=== PATIENT | male | born 1960 | race African-American/Black ===

== ENCOUNTER → 2020-01-13 10:31 | Outpatient (CLI) | payer MEDICARE, MEDICAID, SELFPAY ==
[2020-01-14 10:47] LABS: COVID19 Sendout Not Detected (Not Detect)
== END ==
PROVIDERS: Visit Provider Physician Assistant
DX: Z11.59 Encounter for screening for other viral diseases (principal)
CPT/HCPCS: 87635

== ENCOUNTER 2020-01-16 06:17 | Day surgery (SDC) | payer MEDICARE, MEDICAID, SELFPAY ==
[2020-01-09 12:49] VITALS: BMI 31.4
[2020-01-16] VITALS (21 sets, daily range): BP systolic 134–197; BP diastolic 69–96; PULSE 65–190; RESP 10–82; TEMP 36.1–36.9; O2SAT 15–99
--- NOTE | 2020-01-16 | DI.RAD.S_ITS ---
PROCEDURE: XR CERVICAL SPINE 2V OR 3V INDICATIONS: C3-4, C4-5 ACDF TECHNIQUE: 2 intraoperative fluoroscopic view(s) of the cervical spine were acquired. COMPARISON: None. FINDINGS: Intraoperative fluoroscopic images of the cervical spine shows anterior fusion at C3 through C5 levels with intervertebral spacer placement at C3-4 and C4-5 levels. Mild straightening of normal cervical lordosis is seen. IMPRESSION: Fluoro guidance was provided intraoperatively for anterior fusion at C3 through C5 levels. Dictated by: Hussein Wu M.D. on 01/16/2020 at 10:49 Approved by: Hussein Wu M.D. on 01/16/2020 at 10:50
[2020-01-16] MEDS: LACTATED RINGERS 1,000 ML 42 ML IV (06:58)
--- NOTE | 2020-01-16 07:36 | PM.PREOP ---
Pre-operative Note COVID-19 COVID-19 status: Negative Result date/Date tested (Pos, Neg/Pending): 01/14/20 Interval Note History & Physical reviewed/Exam performed by Physician: Yes Changes to H&P: No
[2020-01-16] MEDS: CEFAZOLIN 2 GM/100 ML FROZ.PIGGY IV ×3 (07:39→23:47)
--- NOTE | 2020-01-16 08:23 | SUR.OPER ---
Supine, head on gel donut. Arms padded with gel pads, tucked at sides, towel roll under shoulders. Safety belt at thigh. Legs uncrossed.
[2020-01-16] MEDS: BUPIVACAINE 0.25% W/ EPI 30 ML VIAL INJ (08:29)
[2020-01-16] MEDS: LACTATED RINGERS 1,000 ML 120 ML IV (10:08)
--- NOTE | 2020-01-16 10:14 | SUR.OPER ---
dentures in labeled cup to pacu with patient
--- NOTE | 2020-01-16 10:19 | P.OP_ITS ---
Operative Date/Time/Diagnoses Date of procedure: 01/16/20 Time of procedure: 08:20 Pre-op diagnosis: 1. C3-4, C4-5 spinal stenosis 2. C3-4, C4-5 spondylosis with radiculopathy Post-op diagnosis: same Procedure & Clinicians Procedure: 1. C3-4, C4-5 anterior cervical diskectomy and fusion 2. C3-4, C4-5 anterior interbody cage placement 3. C3-4, C4-5 anterior instrumentation with plate and screw placement in C3-4 and C5 vertebrae 4. Utilization of microsurgical technique and operating microscope Same procedure as scheduled: Yes Indications: Patient has been having chronic neck pain and worsening cervical radiculopathy. Patient failed multiple conservative management with worsening pain weakness and numbness in her upper extremity. Patient has been having difficulty performing activity of daily living. After discussing risks benefits of treatment options, patient elected proceed with surgery. Surgeon: Herlinda Bauman Harbormaster: Sara Quinones Click Yes if Unassisted: No Anesthesia Type: General Operative Notes Closure Type: primary Specimen(s): none sent Prosthetic devices, grafts, tissues, transplants, or devices: Globus extend plate, PEEK cages Estimated Blood Loss (mL): 10 Blood products transfused: none Procedure in detail: Patient was seen in the preoperative area. Risks and benefits of the surgery was discussed with the patient. Operative consent was obtained and placed in the chart. Patient was then taken to the operative room. Prophylactic antibiotic was given less than 0.5 hr prior to skin incision. General anesthesia was administered. Patient was placed into a supine position on her radiolucent table. Bilateral shoulders were taped down to allow proper C- arm imaging. Anterior cervical area was prepped and draped in a sterile fashion. Time-out was performed at this time. Using lateral C-arm imaging, the level between C3 and C5 was identified and marked on patient's neck. A oblique incision from midline towards medial border of sternocleidomastoid muscle was made. The platysma muscle was incised in line with skin incision. Metzenbaum scissor was used to develop the plane between the medial border of sternocleidomastoid d and the strap muscles medially. The carotid sheath and its contents were identified and protected behind the hand- held retractor during the entire case. The plane between the carotid sheath and strap muscles was developed with Metzenbaum scissors. Dissection was made down to the level of the anterior cervical fascia. Longus colli muscle was incised on the anterior aspect of vertebral bodies bilaterally from C3-C5. Spinal needle was placed into the C3-4 disc space and confirmed with lateral C-arm imaging. Using microsurgical technique and operative microscope, anterior cervical diskectomy was performed at C3-4 and C4-5 level. This was done by removing the disc material, removing the anterior and posterior osteophytes posterior longitudinal ligaments along with performing bilateral foraminotomies at both levels. Patient was found to have severe central and foraminal stenosis at both levels. Patient's stenosis was fully decompressed after decompression was completed. After the diskectomy was completed, 2 anterior interbody cages were obtained. The cages were packed with DBMl bone grafting material. One cage each along with the bone grafting material was then packed into the interbody spaces from C3-4, C4-5 with one cage into each interbody level. After the cages were placed, the anterior cervical plate was stabilized to the C3-5 vertebrae using 2 screws at each each level. Total 6 screws were placed. After confirming placement of the hardware with AP and lateral C-arm imaging, the screws were locked into the plate using the locking mechanism and torque limiting screwdriver. After the hardware was placed and confirmed with AP and lateral C-arm imaging, the wound was irrigated with sterile normal saline. The platysma muscle and the subcutaneous tissue was closed with 2-0 Vicryl. The skin was closed with 4-0 Monocryl and Steri-Strips. Patient tolerated the procedure well. Patient was transferred recovery room in stable condition. There were no complications. Complications: none Post-operative Condition: stable Disposition: PACU Plan for aftercare: Admit to inpatient hospital
[2020-01-16] MEDS: INSULIN ASPART 100 UNIT/ML 10ML VIAL SUBCUT (10:58)
--- NOTE | 2020-01-16 11:04 | SUR.PHASEI ---
1037 to PACU sleeping, oral airway and mask in place. Woke spontaneously at 1042; oral airway dc'd. Very drowsy, minimally opens eyes to request; does not respond to questions regarding pain. 1-3 extra people at bedside as patient began moving around, reassurance given. Pt turned self to position of comfort. 1050 Pt didn't not respond to questions about neck pain, just repeatedly stated I;ve gotta pee. Dr. Bauman consulted by Contreras Balderrama, RN, stated that aguirre may be remove (done by Contreras Balderrama, QING).
[2020-01-16] MEDS: fentaNYL 100 MCG/2 ML INJ IV ×2 (11:15→11:22)
[2020-01-16] MEDS: ACETAMINOPHEN 325 MG TABLET 975 MG PO (11:29)
[2020-01-16] MEDS: OXYCODONE IR 5 MG TABLET PO ×5 (11:30→22:07)
--- NOTE | 2020-01-16 11:32 | SUR.PHASEI ---
1130 Medicated PO after applesauce. Dozing intermittently after 2nd dose of fentanyl. Pt rates pain at 10/10, Facc score used for more accurate assessment of patient status. No crying. mostly calm, dozing intermittently. Skin warm and dry, resp unlabored. Hand-off report to Contreras Ballard RN.
[2020-01-16] MEDS: SODIUM CHLORIDE 0.9% 1,000 ML 100 ML IV ×2 (12:33→23:19)
--- NOTE | 2020-01-16 12:41 | PC.NURSE ---
Day shift note: Received patient from PACU on RA, sat 96%, awake, and alert. SCDs and IVF initiated upon arrival. VSS. SOft cervical collar in place. Scan drainage to edge of dressing to anterior neck, secured with 4 x 4 gauze and tegaderm. Oriented to room, environment, and plan of care. HIgh fall risk precautions maintained, call light within reach.
--- NOTE | 2020-01-16 16:07 | PT-IP ANOTE ---
Received PT orders and reviewed chart. Attempted to contact pt twice this PM with pt deeply asleep and unable to answer questions or participate safely. Will follow up for PT eval on 01/17/20.
[2020-01-16] MEDS: DOCUSATE 100 MG CAPSULE PO (21:23)
[2020-01-16] MEDS: MELOXICAM 7.5 MG TABLET 15 MG PO (21:23)
[2020-01-16] MEDS: GABAPENTIN 300 MG CAPSULE PO (21:23)
[2020-01-16] MEDS: lisinopriL 5 MG TABLET PO (21:23)
[2020-01-16] MEDS: ATORVASTATIN 20 MG TABLET 40 MG PO (21:23)
[2020-01-16] MEDS: SENNOSIDES 8.6 MG TABLET 17.2 MG PO (21:24)
[2020-01-16] MEDS: INSULIN GLARGINE 100 UNIT/ML 10ML VIAL 66 UNIT SUBCUT (21:34)
[2020-01-17] VITALS: BP 150/75; PULSE 79; RESP 18; TEMP 36.9; O2SAT 98
[2020-01-17] MEDS: OXYCODONE IR 5 MG TABLET PO ×4 (01:06→10:12)
[2020-01-17 04:00] VITALS: BP 152/88; PULSE 69; RESP 18; TEMP 36.5; O2SAT 95
--- NOTE | 2020-01-17 07:37 | P.PN_ITS ---
Subjective Subjective Date Patient Seen: 01/17/20 Time Patient Seen: 07:37 Interval history: POD #1 s/p C3-[address] Bauman. Patient has no complaints of pain or muscle spasms. His pain is well controlled with Oxycodone. He has been eating with no difficulty swallowing. Does note some mild hoarseness. Continues to have left arm numbness and weakness which is baseline prior to surgery. No difficulty with urination. Wren was removed immediately following surgery. Exam Vital Signs (past 8 hours): - 01/17/20 00:00 01/17/20 04:00 Temperature 98.5 F 97.7 F Pulse Rate 79 69 Respiratory Rate 18 18 Blood Pressure 150/75 H 152/88 H Pulse Oximetry 98 95 Oxygen Delivery Method Room Air Oxygen Flow Rate 0 Narrative Exam Narrative: Patient sitting up in bed in NAD. He is alert and oriented X3. Calves are soft, compressible, and nontender bilaterally. Dressing on anterior neck is CDI. Sensation intact to light touch except for left forearm. Financial Operations Consultant strength weak at left hand. Radial pulses symmetrical. Assessment & Plan Post-op Postoperative Procedures: Procedures Operation Date: 01/16/20 07:45 Actual Procedures Side Surgeon p C3-4,C4-5 ACDF with anterior instrumentation Not Applicable Herlinda Bauman MD Patient will mobilize with PT today. Soft collar for comfort. No excessive bending, lifting, or twisting. Continue pain control with Oxycodone. Advised if he develops muscle spasms to take Vistaril. If patient mobilizes safely he can DC home today.
[2020-01-17] MEDS: DOCUSATE 100 MG CAPSULE PO (08:06)
[2020-01-17] MEDS: INSULIN GLARGINE 100 UNIT/ML 10ML VIAL 66 UNIT SUBCUT (08:10)
[2020-01-17 08:35] VITALS: BP 147/91; PULSE 66; RESP 18; TEMP 36.6; O2SAT 96
--- NOTE | 2020-01-17 09:03 | OT.IP.EVAL ---
Current Diagnoses Other spondylosis with radiculopathy, cervical region (01/16/20) Spinal stenosis, cervical region (01/16/20) Surgery Performed Operation Date: 01/16/20 07:45 Actual Procedures p C3-4,C4-5 ACDF with anterior instrumentation(Not Applicable) - Herlinda Bauman MD Past Medical History (Last Updated 01/11/20 @ 10:57 by Connie Colon RN) Asthma (Acute) Diabetes (Acute) HLD (hyperlipidemia) (Acute) HTN (hypertension) (Acute) Kidney stones (Acute) Nerve damage (Acute) Outbursts of anger (Acute) Speech impediment (Acute) TBI (traumatic brain injury) (Acute ~2001) Surgical History (Last Updated 01/09/20 @ 13:20 by Connie Colon RN) Hx of arthroscopy of left knee (Acute 04/2016) Hx of hernia repair (Acute 1981) Hx of knee surgery (Acute 1982) Occupational Therapy Inpatient Evaluation/Re-Eval M1 PT/OT-IP Prior Functional Status Start: 01/17/20 10:09 Freq: NEEDED Status: Active Protocol: Document 01/17/20 10:10 [facility] (Rec: 01/17/20 10:29 [facility] [id number]) Medical Review Prior Functional Status Medical History Reviewed Yes Communication Independent. Mobility and Gait Pt did not use any devices. Activities of Daily Living and IADL's Pt states was able to do all ADL needs, needing assist for meds and drives. Social History Household Members spouse Living Arrangements House Number of Floors (Floors) One Floor Number of Stairs To Enter/Railing? 5 steps with left hand rail going up. Home Environment Standard Height Toilet,Tub/ Shower M2 OT-IP Current Condition Start: 01/17/20 10:09 Freq: Status: Active Protocol: Document 01/17/20 10:10 [facility] (Rec: 01/17/20 10:29 [facility] [id number]) Occupational Therapy Current Condition Current Condition Evaluation Date 01/17/20 Treatment Diagnosis Spinal stenosis s/p C3-4, C4-5 ACDF with ant instr. Diagnosis Onset Date 01/16/20 Post Operative Precautions Cervical Spine Precautions Soft Collar for Comfort,No Heavy Lifting,Log Roll M3 OT- IP Subjective and Pain Start: 01/17/20 10:09 Freq: Status: Active Protocol: Document 01/17/20 10:10 [facility] (Rec: 01/17/20 10:29 [facility] [id number]) OT- Subjective Occupational Therapy Visit Type Type Initial Evaluation Visit Start Time 08:30 Visit Stop Time 09:03 Total Visit Minutes 33 Occupational Therapy Visit Comments Patient Comments Pt's present for OT eval. Patient/Caregiver Goals TO go home. OT Pain Assessment Pain When Pain Assessed At Rest Pain Present Pain Present Pain Reported Location Neck Intensity 6 Scale Used Numeric (0 - 10) M4 OT- IP ADL's Start: 01/17/20 10:09 Freq: Status: Active Protocol: Document 01/17/20 10:10 [facility] (Rec: 01/17/20 10:29 [facility] [id number]) OT DNP-[id number] Comments OT Self-Feeding Comments NOt at meal time. Able to go over with pt and regarding strategies after ACDF, eating softer food, chewing food thoroughly, sitting upright , colder food can be helpful and also use of a straw. OT ADL-Grooming General Evaluation Grooming Ability Independent Areas Needing Assistance Retrieving/Set-up of Grooming Items Comments OT Grooming Comments VC for spitting into a cup. OT ADL-Oral Care General Eval Oral Care Ability Independent OT ADL-Dressing General Eval Upper Body Dressing Ability Independent Lower Body Dressing Ability Minimal Assistance Areas Needing Assistance Shoes Comments OT Dressing Comments Pt able to ronal/doff soft collar with LEONOR to help with tightness. Pt needing assist to tie his shoes. Pt able to comfortable get his shorts on without discomfort from his neck. Otherwise has good understanding to assist pt as needed. OT ADL-Toileting General Evaluation Toileting Ability Standby Assistance Comments OT Toileting Comments Practiced toileting and determined best to stand and wipe to best follow cervical precautions. OT ADL-Bathing Comments OT Bathing Comments Pt refused. Pt's state marleni be sure to assist as needed. M5 OT- IP IADL's Start: 01/17/20 10:09 Freq: Status: Active Protocol: Document 01/17/20 10:10 [facility] (Rec: 01/17/20 10:29 [facility] [id number]) OT-Instrumental Activities of Daily Living Home Safety Awareness Home Safety Comments Pt a bit impulsive and needing safety reminders at this time manly to slow down and think things through. Medication Management Medication Management Caregiver Administers Money Management Money Management Caregiver Provides Assistance Meal Preparation Meal Preparation Caregiver Provides Assist Nursing Assoc Nursing Assoc Caregiver Provides Assist Driving Driving Caregiver Provides Assist M6 OT- IP Functional Cognition Start: 01/17/20 10:09 Freq: Status: Active Protocol: Document 01/17/20 10:10 [facility] (Rec: 01/17/20 10:29 [facility] [id number]) Cognitive Factors Limiting Selfcare Function Cognitive Ability Level of Alertness Alert Patient Orientation Name,Place,Situation Attention Span Ability Capable of Focused Attention, Capable of Sustained Attention Ability to Follow Commands Able to Follow One Step Commands Safety Awareness Underestimates Need for Assistance Problem Solving Ability Unable to Identify Errors Cognitive Comments Cognitive Assessment Comments Pt mainly needing cues to slow down, sit for dressing needs, and to take his time. pt needing step by step follow log rolling at this time. OT- Vision and Hearing OT- Hearing Assessment OT- Hearing Assessment WFL OT- Vision Assessment Visual Acuity Glasses For Reading M7 OT- IP Mobility and Balance Start: 01/17/20 10:09 Freq: Status: Active Protocol: Document 01/17/20 10:10 [facility] (Rec: 01/17/20 10:29 [facility] [id number]) OT- Bed Mobility Assessment Rolling Type of Rolling Roll to Left Level of Assistance Standby Assistance Supine to Sit Supine to Sit Assist Standby Assistance Sit to Supine Sit to Supine Assist Standby Assistance OT-Transfer Assessment Sit to and From Stand Sit to and from Stand Standby Assistance Transfers Transfer Ability Standby Assistance Technique Transfer Destination Bed,Chair,Toilet Transfer Technique Stand Step Pivot Devices Transfer Assistive Devices Gait Belt Comments Mobility Comments Initially pt wanting to sit up into long sitting and educated to do log rolling instead which put less pressure on his neck when getting out of bed. Pt needing step by step instructions. 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 OT- Gait Assessment Gait Gait Assistance Required: Standby Assistance Comments Gait Ability Comments SBA OT- Balance Assessment Sitting Balance and Reactions Static Sitting Balance Ability Normal Dynamic Sitting Balance Ability Normal Standing Balance and Reactions Static Standing Balance Ability Normal Dynamic Standing Balance Ability Good M8 OT- IP Objective Assessments Start: 01/17/20 10:09 Freq: Status: Active Protocol: Document 01/17/20 10:10 [facility] (Rec: 01/17/20 10:29 [facility] [id number]) OT Sensation Assessment Comments Summary Comments Pt still having numbness in left arm. M9 OT- IP Assessment and Plan Start: 01/17/20 10:09 Freq: Status: Active Protocol: Document 01/17/20 10:10 [facility] (Rec: 01/17/20 10:29 [facility] [id number]) OT Summary Assessment and Plan Potential Rehabilitation Potential Good Analytic Complexity at Evaluation Low Summary OT Impairments Pain,Functional Cognition, Functional Mobility,Dressing, Toileting,Bathing Progress Towards Goals Progressing Toward Goals Assessment Summary Pt low complexity and main barriers are steps, a bit impulsive, decreased safety awareness, and needing to cue him for safety needs. Pt' s has good understanding to assist pt for all needs and looking to go home. Goals Self-Feeding Goal Independent Grooming Goal Independent Dressing Goal Minimal Assistance Toileting Goal Independent Bathing Goal Independent Toilet Transfer Goal Independent Shower Transfer Goal Independent Patient/Caregiver Education Goal Demonstrate Post-Op Precautions Days to Meet Goals 1 Frequency of Treatment Frequency Of Treatment Once a Day Treatment Plan OT Treatment Plan ADL Training,Functional Cognition Training,Functional Mobility,Patient/Family Education,Discharge Planning Other Treatment Recommendations and Next Shower if still here. Treatment Focus Discharge Recommendations OT Discharge Recommendations Home with Assistance Transportation Needs at Discharge Private Vehicle
--- NOTE | 2020-01-17 09:30 | PT.IIE ---
Current Diagnoses Other spondylosis with radiculopathy, cervical region (01/16/20) Spinal stenosis, cervical region (01/16/20) Surgery Performed Operation Date: 01/16/20 07:45 Actual Procedures p C3-4,C4-5 ACDF with anterior instrumentation(Not Applicable) - Herlinda Bauman MD Surgical History (Last Updated 01/09/20 @ 13:20 by Connie Colon, RN) Hx of arthroscopy of left knee (Acute 04/2016) Hx of hernia repair (Acute 1981) Hx of knee surgery (Acute 1982) Medical History (Last Updated 01/11/20 @ 10:57 by Connie Colon RN) Asthma (Acute) Diabetes (Acute) HLD (hyperlipidemia) (Acute) HTN (hypertension) (Acute) Kidney stones (Acute) Nerve damage (Acute) Outbursts of anger (Acute) Speech impediment (Acute) TBI (traumatic brain injury) (Acute ~2001) Physical Therapy Inpatient Evaluation/Re-Eval M1 PT/OT-IP Prior Functional Status Start: 01/17/20 10:09 Freq: NEEDED Status: Discharge Protocol: Document 01/17/20 10:10 [facility] (Rec: 01/17/20 10:29 [facility] [id number]) Medical Review Prior Functional Status Medical History Reviewed Yes Communication Independent. Mobility and Gait Pt did not use any devices. Activities of Daily Living and IADL's Pt satets able to do all ADL needs, needing assist for meds and drives. Social History Household Members spouse Living Arrangements House Number of Floors (Floors) One Floor Number of Stairs To Enter/Railing? 5 stept with left hand rail going up. Home Environment Standard Height Toilet,Tub/ Shower M2 PT-IP Current Condition Start: 01/16/20 12:20 Freq: NEEDED Status: Discharge Protocol: Document 01/17/20 09:20 [facility] (Rec: 01/17/20 11:42 AW [id number]) Physical Therapy Current Condition Current Condition Evaluation Date 01/17/20 Treatment Diagnosis spinal stenosis s/p C3-C5 ACDF Onset Date 01/16/20 Precautions Cervical Spine Precautions Soft Collar for Comfort,No Heavy Lifting,Log Roll M3 PT-IP Subjective Start: 01/16/20 12:20 Freq: NEEDED Status: Discharge Protocol: Document 01/17/20 09:20 [facility] (Rec: 01/17/20 11:42 AW [id number]) Subjective Physical Therapy Visit Type Type Initial Evaluation Visit Start Time 09:08 Visit Stop Time 09:20 Total Visit Minutes 12 Physical Therapy Visit Comments Patient Comments Pt is dressed and ready to leave Therapy Pain Assessment Pain When Pain Assessed During Mobility Pain Present Pain Present Pain Reported Location Neck Intensity 6 Scale Used Numeric (0 - 10) Pain Management Techniques Timing of Activity with Medications M4 PT-IP Mobility and Gait Start: 01/16/20 12:20 Freq: NEEDED Status: Discharge Protocol: Document 01/17/20 09:20 [facility] (Rec: 01/17/20 11:42 AW [id number]) PT-Bed Mobility Assessment Supine to Sit Supine to Sit Independent Scooting Scooting to Edge of Bed Independent PT-Transfer Assessment Sit to and From Stand Sit to and from Stand Independent Equipment Transfer Assistive Device None Orthotic/Prosthetic Devices or Brace: Yes Transfers Transfer Destination Chair Transfer Technique pt ambulated IND Transfer Ability Level of Assist Independent Comments Mobility Comments Pt was lying in bed as PT arrived. He completed all bed mobility independently and stood from the bed without assist. He maintained good attention to spinal precautions throughout and was appropriate with cervical ROM in the soft brace. Pt ambulated around the unit and completed stairs assessment without need for assist before returning to the room and transferring to the chair. Gait Assessment Gait Gait Assistance Required: Independent Distance (Feet) 250 Able to Maintain Weight Bearing Status Yes During Gait Assistive Devices Assistive Device Gait Belt Gait Deviations General Gait Pattern Within Normal Limits,Wide Based Gait Factors Limiting Gait Function Factors Limiting Gait Function Decreased Sensation,Pain Comments Gait Comments Pt walks with wide LALIT which is typical for him. He had no observed LOB and was independent with all gait activities. Stair Climbing Assessment Evaluation Level of Assist On Stairs Independent Devices Stair Climbing Assistive Devices Left Railing Technique/Endurance Stair Climbing Direction Ascend and Descend Stair Climbing Technique Step Over Step Number of Steps Climbed 3 Query Text: Stair Climbing Set # Repetitions (reps) 2 PT-Balance Assessment Sitting Balance and Reactions Static Sitting Balance Ability Normal Dynamic Sitting Balance Ability Normal Standing Balance and Reactions Static Standing Balance Ability Normal Dynamic Standing Balance Ability Good Device Used no AD M5 PT-IP Objective Assessments Start: 01/16/20 12:20 Freq: NEEDED Status: Discharge Protocol: Document 01/17/20 09:20 [facility] (Rec: 01/17/20 11:42 AW [id number]) Orientation Orientation/Cognition Level of Alertness Alert Orientation Name,Day of Week,Place, Situation Language Function Ability No Deficits Noted Safety Awareness Understands Safety Issues Memory Description No Deficits Noted Gross Range of Motion Upper Extremity ROM Assessment Within Functional Limits Lower Extremity ROM Assessment Within Functional Limits Strength Upper Extremity Strength Assessment Within Functional Limits Lower Extremity Strength Assessment Within Functional Limits Coordination Assessment Gross Coordination Gross Coordination WNL Sensation Assessment Sensation Gross Sensation Left UE Impaired Comments Sensation Comments Pt reports chronic numbness to LUE which is mildly improved after surgery. Muscle Tone Muscle Tone WNL Yes M6 PT-IP Treatment Start: 01/16/20 12:20 Freq: NEEDED Status: Discharge Protocol: Document 01/17/20 09:20 AW (Rec: 01/17/20 11:42 AW [id number]) Physical Therapy Treatment Education Education Provided Precautions,Safety M7 PT-IP Assessment and Plan Start: 01/16/20 12:20 Freq: NEEDED Status: Discharge Protocol: Document 01/17/20 09:20 AW (Rec: 01/17/20 11:42 AW [id number]) PT Summary Assessment and Plan Potential Rehabilitation Potential Good Status of Condition at Evaluation Stable Summary Impairments Pain,ROM,Balance,Sensation Assessment Summary Jono is a 59 yo man seen for PT evaluation on POD1 following C3-4 C4-5 ACDF. He is independent with mobility at baseline. On evaluation, he was independent with all mobility and showed good attention to spinal precautions as he moved. Pt understood to compensate for restricted lower visual field while wearing the soft brace. Pt is safe for discharge. Frequency of Treatment Frequency Of Treatment Discharge Discharge Recommendations PT Discharge Recommendations Home with Assistance Transportation Needs at Discharge Private Vehicle
--- NOTE | 2020-01-17 10:32 | PC.NURSE ---
Day shift: Paperwork signed and all questions answered. Pt has all personal belongings and MD scripts. Dressing is CDI and soft collar in place. Taken to car driven by his spouse in by ANDREI Brewster. CMS intact.
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
== END 2020-01-17 10:36 | disposition home or self-care (01) ==
LOC: OR 06:22 → AC 06:23
PROVIDERS: Referring Provider Orthopaedic Surgery Orthopaedic Surgery of the Spine; Visit Provider Orthopaedic Surgery Orthopaedic Surgery of the Spine
PROC: (CPT 22551; principal; 2020-01-16 07:45)
DX: M47.22 Other spondylosis with radiculopathy, cervical region (principal); M48.02 Spinal stenosis, cervical region; I10 Essential (primary) hypertension; E11.9 Type 2 diabetes mellitus without complications; Z87.820 Personal history of traumatic brain injury; Z87.891 Personal history of nicotine dependence; Z79.4 Long term (current) use of insulin
CPT/HCPCS: 22551; 22552; 22853 ×2; 20930; 22845 ×2; 72040; 76000; 82962; 97161; 97165; 97535; C1776; J0330; J0690; J2250; J2405; J2704; J3010